=== PATIENT | female | born 1960 | race Asian ===

== ENCOUNTER 2019-03-07 00:47 | Emergency (ER) | payer SELFPAY ==
[~2019-03-07] VITALS: Ht 152.4 cm; Wt 61.2 kg
[2019-03-07] MEDS ORDERED: DIAZEPAM 5 MG TAB PO ONE (01:00)
[2019-03-07 01:02] LABS: BASOPHILS % 0.1 % (0.0-1.0); HEMATOCRIT 38.5 % (34.2-44.1); HEMOGLOBIN 12.9 g/dL (12.0-16.0); LYMPHOCYTES # (AUTO) 1.1 (1.0-3.2); LYMPHOCYTES % 7.1 % (18.0-39.1); MEAN CORPUSCULAR HEMOGLOBIN 29.9 pg (28-32); MEAN CORPUSCULAR HGB CONC 33.5 g/dL (31-35); MEAN CORPUSCULAR VOLUME 89.3 fL (81-99); MONOCYTES # (AUTO) 0.3 (0.2-0.8); NEUTROPHILS # (AUTO) 13.8 (2.1-6.9); NEUTROPHILS % 90.3 % (38.7-80.0); PLATELET COUNT 281 x10e3/uL (140-360); RED BLOOD COUNT 4.31 x10e6/uL (3.6-5.1); RED CELL DISTRIBUTION WIDTH 13.1 % (11.7-14.4)
[2019-03-07 01:26] LABS: ALANINE AMINOTRANSFERASE 46 IU/L (0-55); ALKALINE PHOSPHATASE 76 IU/L (40-150); ANION GAP 13.9 mmol/L (8-16); BLOOD UREA NITROGEN 21 mg/dL (7-26); BUN/CREATININE RATIO 23 (6-25); CALCIUM 9.5 mg/dL (8.4-10.2); CARBON DIOXIDE 23 mmol/L (22-29); CHLORIDE 105 mmol/L (98-107); CREATININE, SERUM 0.92 mg/dL (0.57-1.11); EST GLOMERULAR FILTRATION RATE > 60 ML/MIN (60-); GLUCOSE 128 mg/dL (74-118); SODIUM 139 mmol/L (136-145)
[2019-03-07 01:35] LABS: POTASSIUM 2.9 mmol/L (3.5-5.1)
--- NOTE | 2019-03-07 01:37 | NUR ---
rigoberto roe informed of k+ 2.9.
[2019-03-07] MEDS ORDERED: POTASSIUM CHLORIDE 20MEQ/100ML 50 ML IV ONE (01:45)
[2019-03-07] MEDS ORDERED: SODIUM CHLORIDE 0.9% 50ML 50 ML ONE (01:51)
[2019-03-07] MEDS ORDERED: IOPAMIDOL 370 MG/ML 200 ML INFUS..BTL INJ ONE (01:52)
[2019-03-07] MEDS ORDERED: POTASSIUM CHLORIDE 20 MEQ TAB CR PO STA (01:58)
[2019-03-07] MEDS ORDERED: SODIUM CHLORIDE 0.9% 250ML 250 ML ONE (02:33)
--- NOTE | 2019-03-07 02:57 | Diagnostic Imaging Report ---
EXAMINATION: CT of the chest with contrast, PE protocol. TECHNIQUE: Spiral CT images of the chest were performed from the lung apices through the level of the adrenal glands after the IV administration of 100 cc of Isovue 370. Thin section reconstructions were obtained with special concentration on the pulmonary arteries. Coronal and sagittal reformatted images were performed. COMPARISON: <none> CLINICAL HISTORY:Shortness of breath, lower back pain, status post long flight (over 17 hours) DISCUSSION: Lungs: No filling defects are identified in the main, right or left pulmonary arteries to their segmental levels, to suggest pulmonary embolism. No pulmonary nodules, masses, opacities or consolidation. Airways: <The major airways are clear, without endobronchial lesions.> Pleura: <There is no evidence of pleural effusion or pneumothorax.> Heart and mediastinum: Thyroid is unremarkable. Heart size is normal. No pericardial effusion. Mild atherosclerotic calcification of the coronary arteries, particularly the LAD. Aorta is nonaneurysmal. Main pulmonary artery measures 3.1 cm. Lymph nodes: No mediastinal, hilar or axillary adenopathy. Abdomen: Decreased attenuation of the hepatic parenchyma, predominantly in the right lobe, likely reflecting steatosis. No focal lesions. Visualized portions of the spleen, pancreas, kidneys and adrenal glands are unremarkable. Bones and soft tissues: No aggressive lytic lesions. Mild degenerative disc changes in the thoracic spine. Soft tissues are grossly unremarkable. IMPRESSION: 1. No CT evidence of pulmonary embolism. 2. Essentially clear lungs. 3. Mild atherosclerotic disease of the LAD coronary artery. 4. Hepatic steatosis predominantly involving the right lobe Signed by: Dr. Tyrone Alvarado M.D. on 03/07/2019 2:54 AM
[2019-03-07 03:42] LABS: BILIRUBIN,URINE NEGATIVE (NEGATIVE); CLARITY,URINE HAZY (CLEAR); COLOR,URINE YELLOW (YELLOW); KETONES,URINE NEGATIVE (NEGATIVE); LEUKOCYTE ESTERASE ,URINE 1+ (NEGATIVE); NITRITE,URINE NEGATIVE (NEGATIVE); PROTEIN,URINE DIPSTICK TRACE (NEGATIVE); URINE UROBILINOGEN 0.2 mg/dL (0.2 - 1)
[2019-03-07 03:47] LABS: BACTERIA,URINE MANY /HPF; EPITHELIAL CELLS,URINE FEW /LPF; WBC,URINE (MAN) >50 /HPF (0-5)
[2019-03-07] MEDS ORDERED: MACROBID 100 M100 MG PO (03:57)
[2019-03-07] MEDS ORDERED: CEFTRIAXONE SOD 1 GM/NS 50 ML 50 ML IV ONE (04:00)
[2019-03-07] MEDS ORDERED: PYRIDIUM100 MG PO (04:20)
[2019-03-07] MEDS ORDERED: KETOROLAC TROMETHAMINE 30 MG/ML VIAL IV STA (04:28)
--- NOTE | 2019-03-07 05:06 | Diagnostic Imaging Report ---
EXAMINATION: CT of the abdomen and pelvis without contrast. TECHNIQUE: Spiral CT images of the abdomen and pelvis were performed from the lung bases to the lesser trochanters. No intravenous contrast was given per renal stone protocol. Coronal and sagittal reformatted images were obtained. COMPARISON: None. CLINICAL HISTORY:Severe lower back pain, suspect stone (although no hematuria on labs) DISCUSSION: ABSENCE OF INTRAVENOUS CONTRAST DECREASES SENSITIVITY FOR DETECTION OF FOCAL LESIONS AND VASCULAR PATHOLOGY. ABDOMEN/PELVIS: LOWER THORAX: Unremarkable. HEPATOBILIARY: Decreased attenuation of the hepatic parenchyma consistent with steatosis. No focal lesions. No intra or extrahepatic biliary ductal dilation. GALLBLADDER: No radio-opaque stones or sludge. No wall thickening. SPLEEN: No splenomegaly. PANCREAS: No focal masses or ductal dilatation. ADRENALS: No adrenal nodules. KIDNEYS/URETERS: No hydronephrosis or evidence of obstruction. No renal contour abnormalities. Unable to assess for renal stones, given the presence of excreted contrast in the collecting systems and ureters from prior CT chest performed same date. PELVIC ORGANS/BLADDER: Contrast is noted in the bladder. No filling defects. PERITONEUM/RETROPERITONEUM: No free air or fluid. LYMPH NODES: No intra-abdominal,retroperitoneal, pelvic or inguinal lymphadenopathy. VESSELS: Unremarkable for noncontrast exam. GI TRACT: No bowel dilation or evidence of obstruction. Appendix is well identified and normal in caliber. BONES AND SOFT TISSUES: No aggressive lytic lesion. Bony exostosis in the superior aspect of the right symphysis (series 3, image 141 and sagittal image 62), which partly indents the bladder. Soft tissues are unremarkable. IMPRESSION: 1. Unable to assess for renal stones given the presence of excreted contrast in the collecting systems and ureters from prior CT chest performed same date. 2. No hydronephrosis, hydroureter or evidence of obstruction. 3. Hepatic steatosis Signed by: Dr. Tyrone Alvarado M.D. on 03/07/2019 5:02 AM
[2019-03-07] MEDS ORDERED: POTASSIUM CHLORIDE 10MEQ EA PO SCH (09:00)
== END 2019-03-07 05:50 | disposition home or self-care (01) ==
LOC: ER 00:47
DX: M54.5 Low back pain (principal); N30.91 Cystitis, unspecified with hematuria
CPT/HCPCS: 36415; 71260; 74176; 80053; 81001; 85025; 85379; 99284; J0696; J1885; J3480; J7050; Q9967